=== PATIENT | female | born 1990 | race Caucasian/White ===

== ENCOUNTER 2017-08-26 10:21 | Inpatient (IN) ==
[2017-08-26] MEDS ORDERED: RINGER'S SOLUTION,LACTATED 1,000 ML IV PRN (10:34)
[2017-08-26] MEDS ORDERED: ONDANSETRON HCL/PF 2 MG/ML VIAL IV PRN (10:34)
[2017-08-26] MEDS ORDERED: RINGER'S SOLUTION,LACTATED 1,000 ML IV ONE (10:34)
[2017-08-26] MEDS ORDERED: OXYTOCIN/DEXTROSE 5%-WATER 30 UNITS/500 ML BAG IV ONE (10:34)
[2017-08-26 11:22] LABS: Hematocrit 38.8 % (37.0-47.0); Hemoglobin 12.5 gm/dL (12.5-16.0); Mean Cell Volume 81.9 fl (78-100); Mean Corpuscular Hemoglobin 26.4 pg (27-31); Mean Corpuscular Hgb Conc 32.2 g/dl (32-36); Mean Platelet Volume 12.1 fl (6.0-9.5); Neutrophil # 5.3 K/mm3 (1.3-6.0); Neutrophil % 61.6 % (42-75.0); Platelet Count 156 K/mm3 (150-450); Red Blood Count 4.74 M/mm3 (4.2-5.4); Red Cell Distribution Width 14.6 % (11.5-14.0); White Blood Count 8.7 K/mm3 (4.0-10.5)
[2017-08-26 11:46] LABS: Albumin * 2.4 gm/dl (3.4-5.0); Anion Gap 13.7 mmol/L (6.8-13.8); BUN/Creatinine Ratio 13.7 (9.0-21.6); Bilirubin, Total 0.2 mg/dL (0.0-1.1); Ca. Corrected For Albumin 9.5 mg/dL (8.4-10.2); Calcium * 8.5 mg/dL (7.9-10.9); Carbon Dioxide 22.2 mmol/L (24-32.6); Potassium 3.9 mmol/L (3.4-4.6); Total Protein 6.6 gm/dL (6.2-8.2)
[2017-08-26 11:47] LABS: Random Urine Total Protein 26.5 mg/dL (0-12)
--- NOTE | 2017-08-26 22:51 | PN ---
Progess Note - Interim Date: 08/26/17 Time: 22:49 Narrative: 08/26/17 22:49 Subjective-patient is to feel contractions more, does not notice any back labor Objective- SVE- 3-4/50/-2, mid position, cephalic FHTs- 130s, moderate variability, positive accelerations, no decelerations [place]- free 3-4 minutes on Pitocin Assessment and plan- Labor-induction due to gestational hypertension, on Pitocin, patient declines amniotomy at this time. Blood pressures within normal limits. GBS status-negative Continue current plan of care.
--- NOTE | 2017-08-27 08:47 | PN ---
Progess Note - Interim Date: 08/27/17 Time: 08:43 Narrative: 08/27/17 08:43 Patient tolerating contractions well Vital signs stable. Her pressures in normal range. Pitocin at 18 mu/min. FHT:150 baseline, reassuring Fetus in OP presentation. Contractions q 3-4 min Cervix: Very posterior, unable to reach internal loss, station -3 Impression: Intrauterine at 40 1/7 weeks induction of labor for gestational hypertension Plan: We'll continue trying different positions to turn baby to OA. AROM when head well applied to cervix.
[2017-08-27] MEDS ORDERED: BUTORPHANOL TARTRATE 2 MG/ML VIAL IV PRN (12:55)
[2017-08-27] MEDS ORDERED: GLYCERIN/WITCH HAZEL LEAF 40 APPL BOX TP PRN (16:06)
[2017-08-27] MEDS ORDERED: BISACODYL 10 MG SUPP.RECT RC PRN (16:06)
[2017-08-27] MEDS ORDERED: OXYTOCIN/DEXTROSE 5%-WATER 30 UNITS/500 ML BAG IV ONE (16:06)
[2017-08-27] MEDS ORDERED: SENNOSIDES 8.6 MG TABLET PO PRN (16:06)
[2017-08-27] MEDS ORDERED: HYDROCORTISONE 30 APPL TUBE TP PRN (16:06)
[2017-08-27] MEDS ORDERED: oxyCODONE HCL/ACETAMINOPHEN 1 TAB TABLET PO PRN ×2 (16:06)
[2017-08-27] MEDS ORDERED: BENZOCAINE/MENTHOL 81 SPRAY CAN TP PRN (16:06)
--- NOTE | 2017-08-27 16:08 | OR ---
Operative Report - Dictated Report Narrative: Spontaneous vaginal delivery of viable male at 1536 with Apgars 9 and 9 , weighing 4000 g in OP presentation. Cord clamping delayed approximately 1 minute Placenta delivered complete, intact, with three vessel cord Estimated blood loss: 150 mL Anesthesia: None Lacerations: None
[2017-08-27] MEDS: IBUPROFEN 800 MG TABLET PO PRN (18:17)
[2017-08-27] MEDS: DOCUSATE SODIUM 100 MG CAPSULE PO SCH (22:02)
--- NOTE | 2017-08-28 08:26 | PN ---
Subjective - Date and Time Seen Date: 08/28/17 Time: 08:25 Objective - Vitals Vitals: Last Vital Signs Temp 36.6 C 08/28/17 07:10 Pulse 85 08/28/17 07:10 Resp 18 08/28/17 07:10 BP 109/64 08/28/17 07:10 Pulse Ox 98 08/28/17 07:10 Patient denies complaints. Lochia wnl Abdomen - soft, nontender Uterus - firm, at umbilicus - 1 No calf tenderness Impression: day #1 - s/p spontaneous vaginal delivery. Plan: Continue routine care
[2017-08-28] MEDS: DOCUSATE SODIUM 100 MG CAPSULE PO SCH ×2 (08:50→21:20)
[2017-08-28] MEDS: IBUPROFEN 800 MG TABLET PO PRN ×2 (14:55→21:19)
[2017-08-29 07:33] VITALS: BP 109/74
--- NOTE | 2017-08-29 10:31 | PN ---
Subjective - Date and Time Seen Date: 08/29/17 Time: 10:30 Objective - Vitals Vitals: Last Vital Signs Temp 36.1 C L 08/29/17 07:20 Pulse 84 08/29/17 07:20 Resp 18 08/29/17 07:20 BP 109/74 08/29/17 07:20 Pulse Ox 97 08/29/17 00:30 Patient denies complaints. Lochia wnl Abdomen - soft, nontender Uterus - firm, at umbilicus - 2 No calf tenderness Impression: day #2 - s/p spontaneous vaginal delivery. Plan: Routine discharge instructions
[2017-08-29] MEDS: DOCUSATE SODIUM 100 MG CAPSULE PO SCH (10:52)
== END 2017-08-29 13:00 | disposition home or self-care (01) | DRG 775 ==
LOC: OB 10:21 → MS 08-27 20:08
PROVIDERS: ADMIT Obstetrics & Gynecology; ATTEND Obstetrics & Gynecology
DX: Z3A.40 40 weeks gestation of pregnancy; D69.6 Thrombocytopenia, unspecified; F41.9 Anxiety disorder, unspecified; O99.12 Other diseases of the blood and blood-forming organs and certain disorders involving the immune mechanism complicating childbirth; Z37.0 Single live birth; E04.9 Nontoxic goiter, unspecified; O13.4 Gestational [pregnancy-induced] hypertension without significant proteinuria, complicating childbirth
CPT/HCPCS: 36415; 80053; 82570; 84155; 84156; 85025; J2405